=== PATIENT | female | born 1980 | race Caucasian/White ===

== ENCOUNTER 2020-07-09 10:41 | Emergency (ER) | payer OTHER ==
[~2020-07-09] VITALS: Ht 175.3 cm; Wt 136.1 kg
[2020-07-09 10:43] VITALS: BP 161/89
[2020-07-09] MEDS ORDERED: ONDANSETRON 4 MG/2 ML VIAL IVP ONE (11:40)
[2020-07-09] MEDS ORDERED: NACL 0.9% 1,000 ML IV SCH (11:40)
[2020-07-09] MEDS ORDERED: ALUMINUM HYD/MAG/SIMETHICONE 30 ML, DICYCLOMINE HCL LIQUID 20 MG, LIDOCAINE VISCOUS 2% ... PO ONE ×3 (11:40)
[2020-07-09] MEDS ORDERED: DICYCLOMINE HCL LIQUID 10 MG/5 ML UDC ONE (11:56)
[2020-07-09] MEDS ORDERED: ALUMINUM HYD/MAG/SIMETHICONE 30 ML UDC ONE (11:56)
[2020-07-09] MEDS ORDERED: LIDOCAINE VISCOUS 2% 20 ML UDC ONE (11:56)
[2020-07-09 11:57] LABS: BASOPHILS # (AUTO) 0.1 K/uL (0.00-0.22); BASOPHILS % (AUTO) 0.8 % (0.0-2.0); EOSINOPHILS # (AUTO) 0.1 K/uL (0-0.4); EOSINOPHILS % (AUTO) 1.1 % (0.0-4.0); HEMATOCRIT 36.9 % (36-48); HEMOGLOBIN 12.3 g/dL (12.0-16.0); LYMPHOCYTES # (AUTO) 1.8 K/uL (2.5-16.5); MEAN CORPUSCULAR HEMOGLOBIN 26 pg (27-31); MEAN CORPUSCULAR HGB CONC 33 g/dL (33-37); MEAN CORPUSCULAR VOLUME 76.2 fL (80-94); MONOCYTES # (AUTO) 0.6 K/uL (0.8-1.0); NEUTROPHILS # (AUTO) 4.2 K/uL (1.8-7.7); NEUTROPHILS % (AUTO) 62.1 % (42.2-75.2); PLATELET COUNT (AUTO) 313 K/uL (140-450); RED BLOOD CELL COUNT(AUTO) 4.84 MIL/uL (4.20-5.40); WHITE BLOOD COUNT (AUTO) 6.8 K/uL (4.8-10.8)
[2020-07-09 11:58] LABS: APPEARANCE,URINE CLEAR (CLEAR); BILIRUBIN,URINE 1+ (NEGATIVE); BLOOD, URINE NEGATIVE (NEGATIVE); COLOR,URINE YELLOW (YELLOW); LEUKOCYTE ESTERASE ,URINE NEGATIVE (NEGATIVE); NITRITE, URINE NEGATIVE (NEGATIVE); UGLUCOSE NEGATIVE (NEGATIVE)
[2020-07-09 12:08] LABS: RBC,URINE NONE SEEN /HPF (0-5); WBC,URINE 0-5 /HPF (0-5)
[2020-07-09 12:10] LABS: ALBUMIN 3.6 g/dL (3.4-5.0); ANION GAP 15.2 (8-16); CARBON DIOXIDE 23.8 mmol/L (21-32); CREATININE 0.6 mg/dL (0.6-1.3); TOTAL BILIRUBIN 0.4 mg/dL (0.0-1.0)
[2020-07-09] MEDS ORDERED: IMO2 PO (13:37)
[2020-07-09] MEDS ORDERED: AMOX1TAB8 PO (13:37)
[2020-07-09] MEDS ORDERED: ONDA-24 SL (13:37)
[2020-07-09 13:45] VITALS: BP 161/89
== END 2020-07-09 13:47 | disposition home or self-care (01) ==
LOC: MED 10:41
DX: A09 Infectious gastroenteritis and colitis, unspecified (principal); R10.13 Epigastric pain; R11.0 Nausea
CPT/HCPCS: 36415; 80053; 81001; 81025; 83690; 85025; 87045; 87070; 87427; 89055; 96361; 96374; 99283; J2405; J7030

== ENCOUNTER 2020-08-18 16:39 | Emergency (ER) | payer OTHER ==
[~2020-08-18] VITALS: Ht 175.3 cm; Wt 136.1 kg
[~2020-08-18 16:39] MED LIST: AMOX1TAB8 PO; IMO2 PO; ONDA-24 SL
[2020-08-18 16:41] VITALS: BP 154/107
--- NOTE | 2020-08-18 16:54 | NUR ---
pt ambulated to bed 09.
--- NOTE | 2020-08-18 16:57 | NUR ---
39 Y/O FEMALE C/O LEFT FOOT PAIN 04/03 DESCRIBES ACHING NON-RADIATING X 1DAY. DENIES RECENTLY TRAUMA/INJURY. DENIES N/V, DENIES FEVER/CHILLS. PMH: L FOOT FRACTURE 2 YEARS AGO, GOUT NKA
--- NOTE | 2020-08-18 17:00 | NUR ---
MARIVEL Marc at pt bedside for further evaluation.
--- NOTE | 2020-08-18 17:43 | NUR ---
photovoltaic testing technician at pt bedside.
[2020-08-18] MEDS ORDERED: KETOROLAC 30 MG/ML VIAL IM ONE (18:00)
[2020-08-18] MEDS ORDERED: PRED20TA5 PO (18:10)
[2020-08-18] MEDS ORDERED: INDO-323 PO (18:10)
[2020-08-18 18:36] VITALS: BP 154/107
--- NOTE | 2020-08-18 18:36 | NUR ---
Patient discharged with v/s stable. Written and verbal after care instructions given bursitis and low purine dietand explained. Patient alert, oriented and verbalized understanding of instructions. Ambulatory with steady gait. All questions addressed prior to discharge. ID band removed. Patient advised to follow up with PMD. Rx of indocin 25mg po tid for 5days, and prednisone 20mg po daily given. Patient educated on indication of medication including possible reaction and side effects. Opportunity to ask questions provided and answered.
== END 2020-08-18 18:30 | disposition home or self-care (01) ==
LOC: MED 16:39
DX: M10.072 Idiopathic gout, left ankle and foot (principal); Z90.49 Acquired absence of other specified parts of digestive tract; Z98.890 Other specified postprocedural states; Z79.899 Other long term (current) drug therapy
CPT/HCPCS: 73630; 99283; J1885

== ENCOUNTER 2023-03-04 19:45 | Inpatient (IN) | payer OTHER ==
[~2023-03-04] VITALS: Ht 175.3 cm; Wt 127.9 kg
[2023-03-04 08:57] LABS: BASOPHILS # (AUTO) 0.1 K/uL (0.00-0.22); BASOPHILS % (AUTO) 1.1 % (0.0-2.0); EOSINOPHILS # (AUTO) 0.2 K/uL (0-0.4); EOSINOPHILS % (AUTO) 3.2 % (0.0-4.0); HEMATOCRIT 32.8 % (36-48); HEMOGLOBIN 10.4 g/dL (12.0-16.0); LYMPHOCYTES # (AUTO) 1.7 K/uL (2.5-16.5); LYMPHOCYTES % (AUTO) 24.4 % (20.5-51.1); MEAN CORPUSCULAR HEMOGLOBIN 21 pg (27-31); MEAN CORPUSCULAR HGB CONC 32 g/dL (33-37); MEAN CORPUSCULAR VOLUME 66.2 fL (80-94); MONOCYTES # (AUTO) 0.4 K/uL (0.8-1.0); MONOCYTES % (AUTO) 6.1 % (1.7-9.3); NEUTROPHILS # (AUTO) 4.7 K/uL (1.8-7.7); NEUTROPHILS % (AUTO) 65.2 % (42.2-75.2); PLATELET COUNT (AUTO) 356 K/uL (140-450); RED BLOOD CELL COUNT(AUTO) 4.95 MIL/uL (4.20-5.40); RED CELL DISTRIBUTION WIDTH 17.5 % (11.6-13.7); WHITE BLOOD COUNT (AUTO) 7.2 K/uL (4.8-10.8)
[2023-03-04 09:33] LABS: ALBUMIN 3.2 g/dL (3.4-5.0); CREATININE 0.8 mg/dL (0.6-1.3); TOTAL BILIRUBIN 0.4 mg/dL (0.0-1.0); TOTAL PROTEIN, SERUM 8.2 g/dL (6.4-8.2)
[2023-03-04 09:42] LABS: ANION GAP 14.9 (8-16)
[2023-03-04 09:53] LABS: POTASSIUM 2.9 mmol/L (3.5-5.1)
[2023-03-04 19:45] VITALS: PULSE 80; RESP 18; O2SAT 97
[~2023-03-04 19:45] MED LIST changes: +AMOX-1230 PO; -AMOX1TAB8 PO; +INDO-323 PO; +ONDA-188 SL; -ONDA-24 SL; +PRED20TA5 PO
[2023-03-04] MEDS: LACTATED RINGERS 1,000 ML IV SCH (21:05)
[2023-03-04] MEDS ORDERED: KCL 20 MEQ IN 100 mL PREMIX 100 ML IV ONE (21:20)
[2023-03-04] MEDS: KCL 20 MEQ IN 100 mL PREMIX 200 ML IV PRN (22:07)
[2023-03-05] VITALS: BP 110/66; PULSE 80; RESP 18; TEMP 97.8; O2SAT 97
[2023-03-05] MEDS: KCL 20 MEQ IN 100 mL PREMIX 200 ML IV PRN (00:19)
[2023-03-05 02:44] LABS: BASOPHILS # (AUTO) 0.1 K/uL (0.00-0.22); BASOPHILS % (AUTO) 0.9 % (0.0-2.0); EOSINOPHILS # (AUTO) 0.3 K/uL (0-0.4); EOSINOPHILS % (AUTO) 3.1 % (0.0-4.0); HEMATOCRIT 30.3 % (36-48); HEMOGLOBIN 9.7 g/dL (12.0-16.0); LYMPHOCYTES # (AUTO) 2.8 K/uL (2.5-16.5); LYMPHOCYTES % (AUTO) 26.2 % (20.5-51.1); MEAN CORPUSCULAR HEMOGLOBIN 21 pg (27-31); MEAN CORPUSCULAR HGB CONC 32 g/dL (33-37); MEAN CORPUSCULAR VOLUME 65.7 fL (80-94); MONOCYTES # (AUTO) 0.7 K/uL (0.8-1.0); MONOCYTES % (AUTO) 6.9 % (1.7-9.3); NEUTROPHILS # (AUTO) 6.8 K/uL (1.8-7.7); NEUTROPHILS % (AUTO) 62.9 % (42.2-75.2); PLATELET COUNT (AUTO) 354 K/uL (140-450); RED BLOOD CELL COUNT(AUTO) 4.61 MIL/uL (4.20-5.40); RED CELL DISTRIBUTION WIDTH 17.1 % (11.6-13.7); WHITE BLOOD COUNT (AUTO) 10.8 K/uL (4.8-10.8)
[2023-03-05 02:59] LABS: ANION GAP 12.8 (8-16); CALCIUM 8.8 mg/dL (8.5-10.1); CARBON DIOXIDE 28.6 mmol/L (21-32); CREATININE 0.8 mg/dL (0.6-1.3); POTASSIUM 3.4 mmol/L (3.5-5.1)
[2023-03-05] MEDS: LACTATED RINGERS 1,000 ML IV SCH (04:11)
[2023-03-05] MEDS ORDERED: LIDOCAINE/EPI MPF 1%1:200000 30 ML VIAL INJ ONE (07:18)
[2023-03-05] MEDS ORDERED: ceFAZolin 2,000 MG VIAL ONE (07:18)
[2023-03-05] MEDS ORDERED: BUPIVACAINE-MPF 0.25% 30 ML VIAL INJ ONE (07:19)
[2023-03-05] MEDS ORDERED: MIDAZOLAM 2 MG/2 ML VIAL ONE (07:28)
[2023-03-05] MEDS ORDERED: HYDROmorphone PFS 2 MG/ML SYR ONE (07:30)
[2023-03-05] MEDS ORDERED: SUCCINYLCHOLINE CHLORIDE 200 MG/10 ML VIAL IVP ONE (07:37)
[2023-03-05] MEDS ORDERED: ROCURONIUM 50 MG/5 ML VIAL IV ONE ×2 (07:37→09:07)
[2023-03-05] MEDS ORDERED: MAG SULF 2000 MG/WATER PREMIX 50 ML IV SCH (08:00)
[2023-03-05] MEDS ORDERED: KETOROLAC 30 MG/ML VIAL ONE (10:06)
[2023-03-05] MEDS ORDERED: ONDANSETRON 4 MG/2 ML VIAL ONE (10:06)
[2023-03-05] MEDS ORDERED: ePHEDrine 50 MG/ML VIAL ONE (10:06)
[2023-03-05] MEDS ORDERED: ceFAZolin 1,000 MG VIAL ONE (10:07)
[2023-03-05] MEDS ORDERED: ONDANSETRON 4 MG/2 ML VIAL IVP PRN (10:25)
[2023-03-05] MEDS ORDERED: HYDROmorphone 1 MG/ML AMP IVP PRN (10:25)
[2023-03-05 11:20] VITALS: BP 112/60; PULSE 72; RESP 18; TEMP 98; O2SAT 96
[2023-03-05 11:23] VITALS: PULSE 75; RESP 18
[2023-03-05 12:00] VITALS: BP 127/77; PULSE 72; RESP 18; TEMP 98; O2SAT 98
[2023-03-05 15:21] VITALS: BP 127/80; PULSE 82; RESP 18; TEMP 98
== END 2023-03-05 16:20 | disposition home or self-care (01) | DRG 743 ==
LOC: MMU 19:45 → EDSTATUS 03-05 07:30
PROVIDERS: ADMIT Obstetrics & Gynecology; ATTEND Obstetrics & Gynecology
PROC: 0UB74ZZ Excision of Bilateral Fallopian Tubes, Percutaneous Endoscopic Approach (ICD-10-PCS; 2023-03-05)
PROC: 0UT94ZZ Resection of Uterus, Percutaneous Endoscopic Approach (ICD-10-PCS; principal; 2023-03-05 07:30)
DX: D25.9 Leiomyoma of uterus, unspecified (principal); N80.9 Endometriosis, unspecified; N94.10 Unspecified dyspareunia; N94.6 Dysmenorrhea, unspecified; N93.9 Abnormal uterine and vaginal bleeding, unspecified
CPT/HCPCS: 36415; 80048; 80053; 83735; 85025; 85730; 86886; 86900; 86901; 87081; 88307; 88312; 93005; J0330; J0690; J1170; J1885; J2001; J2250; J2405; J3475; J3480; J3490